=== PATIENT | female | born 1990 | race Two or more races ===

== ENCOUNTER 2019-01-13 07:10 | Emergency (ER) | payer MEDICAID ==
[~2019-01-13] VITALS: Ht 157.5 cm; Wt 83.6 kg
[2019-01-13 08:05] LABS: Urine Bacteria MOD /hpf (None Seen); Urine Blood Negative /uL (Negative); Urine Mucus FEW (None Seen); Urine Specific Gravity 1.034 (1.001-1.035); Urine WBC 6 /hpf (0 - 5)
[2019-01-13 09:47] VITALS: BP 105/68
== END 2019-01-13 10:09 | disposition home or self-care (01) ==
LOC: ER 07:10
DX: N39.0 Urinary tract infection, site not specified (principal); J03.90 Acute tonsillitis, unspecified
CPT/HCPCS: 81001; 87086

== ENCOUNTER 2020-01-14 10:29 | Emergency (ER) | payer MEDICAID ==
[~2020-01-14] VITALS: Ht 157.5 cm; Wt 81.6 kg
[2020-01-14 11:24] LABS: Urine Bacteria FEW /hpf (None Seen); Urine Blood 1+ /uL (Negative); Urine Mucus FEW (None Seen); Urine Specific Gravity 1.035 (1.001-1.035); Urine WBC 6 /hpf (0 - 5)
[2020-01-14 11:40] VITALS: BP 121/66
== END 2020-01-14 12:09 | disposition home or self-care (01) ==
LOC: ER 10:29
DX: N39.0 Urinary tract infection, site not specified (principal); Z32.02 Encounter for pregnancy test, result negative; Z88.1 Allergy status to other antibiotic agents
CPT/HCPCS: 36415; 81001; 84702

== ENCOUNTER 2022-03-12 16:38 | Emergency (ER) | payer MEDICAID ==
[~2022-03-12] VITALS: Ht 157.5 cm; Wt 81.6 kg
[2022-03-12 18:25] LABS: Basophils # (auto) 0 10 ^3/uL (0-0.2); Basophils % (auto) 0.5 % (0.0-2.0); Eosinophils # (auto) 0.1 10 ^3/uL (0-0.8); Eosinophils % (auto) 1.1 % (0.0-7.0); Hemoglobin 11.9 g/dL (12.2-16.2); Lymphocytes % (auto) 34.6 % (10.0-50.0); Mean Corpuscular Hemoglobin 28.3 pg (28.0-32.0); Mean Corpuscular Hgb Conc. 32.9 g/dL (32.0-36.0); Mean Corpuscular Volume 85.9 fL (80.0-100.0); Monocytes # (auto) 0.5 10 ^3/uL (0-1.3); Monocytes % (auto) 5.8 % (0.0-12.0); Neutrophils # (auto) 4.9 10 ^3/uL (1.6-8.6); Nucleated Red Blood Cells % 0.1 %; Red Blood Cells 4.19 10^6/uL (4.0-5.20); White Blood Cell 8.5 10^3/uL (4.4-10.8)
[2022-03-12 18:39] LABS: Potassium 3.4 mmol/L (3.5-5.1)
[2022-03-12 18:42] LABS: Urine Bacteria FEW /hpf (None Seen); Urine Blood Negative /uL (Negative); Urine Mucus FEW (None Seen); Urine Specific Gravity 1.022 (1.001-1.035); Urine WBC 1 /hpf (0 - 5)
[2022-03-12 18:47] LABS: Albumin 3.6 g/dL (3.4-5.0); BUN/Creatinine Ratio 10.8; Bilirubin, Total 0.3 mg/dL (0.2-1.0); Calcium 8.6 mg/dL (8.5-10.1); Total Protein 7.5 g/dL (6.4-8.2)
[2022-03-12 19:43] VITALS: BP 118/72
== END 2022-03-12 19:44 | disposition home or self-care (01) ==
LOC: ER 16:38
DX: R55 Syncope and collapse (principal); Z88.0 Allergy status to penicillin
CPT/HCPCS: 36415; 70450; 71046; 80053; 81001; 81025; 84484; 85025; 93005

== ENCOUNTER 2022-12-22 17:05 | Observation (INO) | payer MEDICAID ==
[2022-12-22] MEDS ORDERED: LACTATED RINGER'S 2,000 ML IV ONE (18:00)
== END 2022-12-22 19:57 | disposition home or self-care (01) ==
LOC: LDRP 17:05
PROVIDERS: ADMIT Obstetrics & Gynecology; ATTEND Obstetrics & Gynecology
DX: O26.892 Other specified pregnancy related conditions, second trimester (principal); R10.30 Lower abdominal pain, unspecified; N89.8 Other specified noninflammatory disorders of vagina; O62.9 Abnormality of forces of labor, unspecified; Z3A.22 22 weeks gestation of pregnancy
CPT/HCPCS: 59025; 76805; 81002; 94760; 96360; 96361; G0378; 96365; 96366

== ENCOUNTER 2023-03-18 22:15 | Observation (INO) | payer MEDICAID ==
[2023-03-18] MEDS ORDERED: LACTATED RINGER'S 1,000 ML IV ONE (23:15)
[2023-03-18] MEDS ORDERED: BETAMETHASONE ACET (30mg/5ml) 5ml Vial 6mg/ml IM ONE (23:15)
[2023-03-18] MEDS ORDERED: LACTATED RINGER'S 1,000 ML IV SCH (23:15)
[2023-03-18 23:26] LABS: Urine Bacteria FEW /hpf (None Seen); Urine Blood Negative /uL (Negative); Urine Mucus FEW (None Seen); Urine Specific Gravity 1.031 (1.001-1.035); Urine WBC 2 /hpf (0 - 5)
[2023-03-18] MEDS: TERBUTALINE SULFATE 1 MG/ML 1ML VIAL SC SCH (23:28)
[2023-03-18 23:39] LABS: Amphetamine Screen, Urine NEGATIVE (NEGATIVE); Barbiturate Scree,Urine NEGATIVE (NEGATIVE); Benzodiazephine Screen, Urine NEGATIVE (NEGATIVE); Cannabinoid Screen, Urine NEGATIVE (NEGATIVE); Cocaine Screen, Urine NEGATIVE (NEGATIVE); Opiate Scree,Urine NEGATIVE (NEGATIVE); Phencyclidine Screen, Urine NEGATIVE (NEGATIVE)
[2023-03-19] MEDS: TERBUTALINE SULFATE 1 MG/ML 1ML VIAL SC SCH ×2 (00:20→00:56)
[2023-03-20] MEDS ORDERED: PREN27TA7 PO ×2 (02:10)
== END 2023-03-19 02:02 | disposition home or self-care (01) ==
LOC: LDRP 22:15
PROVIDERS: ADMIT Obstetrics & Gynecology; ATTEND Obstetrics & Gynecology
DX: O34.33 Maternal care for cervical incompetence, third trimester (principal); O99.891 Other specified diseases and conditions complicating pregnancy; M54.9 Dorsalgia, unspecified; O26.893 Other specified pregnancy related conditions, third trimester; R10.9 Unspecified abdominal pain; Z3A.34 34 weeks gestation of pregnancy
CPT/HCPCS: 59025; 80307; 81001; 81002; 94760; 96360; 96361; 96372; G0378; J0702; J3105

== ENCOUNTER 2023-03-19 23:40 | Observation (INO) | payer MEDICAID ==
[~2023-03-19] VITALS: Ht 157.5 cm; Wt 88.5 kg
[2023-03-20] MEDS ORDERED: BETAMETHASONE ACET (30mg/5ml) 5ml Vial 6mg/ml IM ONE
[2023-03-20] MEDS ORDERED: PREN27TA7 PO ×2 (02:10)
== END 2023-03-20 02:22 | disposition home or self-care (01) ==
LOC: LDRP 23:40
PROVIDERS: ADMIT Obstetrics & Gynecology; ATTEND Obstetrics & Gynecology
DX: O60.03 Preterm labor without delivery, third trimester (principal); O62.9 Abnormality of forces of labor, unspecified; Z3A.34 34 weeks gestation of pregnancy
CPT/HCPCS: 59025; 76818; 81002; 94760; G0378; J0702; 96372

== ENCOUNTER 2023-04-02 04:16 | Inpatient (IN) | payer MEDICAID ==
[~2023-04-02] VITALS: Ht 157.5 cm; Wt 86.2 kg
[~2023-04-02 04:16] MED LIST: PREN27TA7 PO
[2023-04-02] MEDS ORDERED: DERMOPLAST 60ML BOTTLE TOP PRN (04:45)
[2023-04-02] MEDS ORDERED: METHYLERGONOVINE MALEATE 0.2 MG/ML AMP IM PRN (04:45)
[2023-04-02] MEDS ORDERED: LACT. RINGERS/OXYTOCIN 20UNITS 500 ML IV ONE ×2 (04:45→05:15)
[2023-04-02] MEDS ORDERED: BUTORPHANOL TARTRATE 2 MG/1 ML VIAL IV PRN ×2 (04:45)
[2023-04-02] MEDS ORDERED: LIDOCAINE 2%HCL (LOCAL ANESTH.) INJ 20ML MDV IJ PRN (04:45)
[2023-04-02] MEDS ORDERED: PHISODERM TOP SOLN 240ML BTL TOP PRN (04:45)
[2023-04-02] MEDS ORDERED: miSOPROStol 100 mcg TAB PR PRN (04:45)
[2023-04-02] MEDS ORDERED: PROMETHAZINE HCL 25 MG/ML 1ML IM PRN (04:45)
[2023-04-02] MEDS ORDERED: WITCH HAZEL-GLYCERIN PAD TOP PRN (04:45)
[2023-04-02] MEDS ORDERED: miSOPROStol 100 mcg TAB SL PRN (04:45)
[2023-04-02] MEDS ORDERED: LACTATED RINGER'S 1,000 ML IV SCH (04:45)
[2023-04-02 05:22] LABS: Basophils # (auto) 0 10 ^3/uL (0-0.2); Basophils % (auto) 0.4 % (0.0-2.0); Eosinophils # (auto) 0 10 ^3/uL (0-0.8); Monocytes # (auto) 0.6 10 ^3/uL (0-1.3); Neutrophils # (auto) 6.8 10 ^3/uL (1.6-8.6)
[2023-04-02 05:24] LABS: Eosinophils % (auto) 0.4 % (0.0-7.0); Hematocrit 26.8 % (36.0-46.0); Hemoglobin 8.4 g/dL (12.2-16.2); Lymphocytes # (auto) 2.4 10 ^3/uL (0.4-5.4); Lymphocytes % (auto) 24.2 % (10.0-50.0); Mean Corpuscular Hemoglobin 24.4 pg (28.0-32.0); Mean Corpuscular Hgb Conc. 31.4 g/dL (32.0-36.0); Mean Corpuscular Volume 77.5 fL (80.0-100.0); Monocytes % (auto) 6.3 % (0.0-12.0); Neutrophils % (auto) 68.7 % (37.0-80.0); Nucleated Red Blood Cells % 0.1 %; Red Blood Cells 3.45 10^6/uL (4.0-5.20); Red Cell Distribution Width 19.1 % (11.8-14.3)
[2023-04-02 05:35] LABS: Albumin 2.4 g/dL (3.4-5.0); Calcium 8.1 mg/dL (8.5-10.1); Potassium 3.3 mmol/L (3.5-5.1)
[2023-04-02 05:38] LABS: INR 0.89 (0.9-1.15); Partial Thromboplastin Time 26.1 sec (24.6-33.4)
[2023-04-02 05:39] LABS: BUN/Creatinine Ratio 15.9 (10.0-20.0); Bilirubin, Total 0.2 mg/dL (0.2-1.0); Total Protein 6.6 g/dL (6.4-8.2)
[2023-04-02 05:47] LABS: Urine Bacteria FEW /hpf (None Seen); Urine Blood Negative /uL (Negative); Urine Hyaline Cast FEW /lpf (0 - 2); Urine Mucus FEW (None Seen); Urine Specific Gravity 1.016 (1.001-1.035); Urine WBC 1 /hpf (0 - 5)
[2023-04-02] MEDS ORDERED: CLINDAMYCIN 900MG IV 50 ML IV SCH (06:00)
[2023-04-02 06:02] LABS: Alcohol, Urine < 3.0 mg/dL (0-10); Amphetamine Screen, Urine NEGATIVE (NEGATIVE); Barbiturate Scree,Urine NEGATIVE (NEGATIVE); Benzodiazephine Screen, Urine NEGATIVE (NEGATIVE); Cannabinoid Screen, Urine NEGATIVE (NEGATIVE); Cocaine Screen, Urine NEGATIVE (NEGATIVE); Opiate Scree,Urine NEGATIVE (NEGATIVE); Phencyclidine Screen, Urine NEGATIVE (NEGATIVE)
[2023-04-02] MEDS ORDERED: NALOXONE HCL 0.4 MG/ML VIAL IV ONE (07:15)
[2023-04-02] MEDS ORDERED: ePHEDrine SULFATE 50 MG/ML AMP IV ONE (07:15)
[2023-04-02] MEDS ORDERED: fentaNYL CITRATE 100 MCG/2 ML VL IV ONE (07:15)
[2023-04-02] MEDS ORDERED: ROPIVACAINE HCL 200 ML EPI SCH (07:15)
[2023-04-02] MEDS ORDERED: LACTATED RINGER'S 1,000 ML IV ONE (07:15)
[2023-04-02] MEDS ORDERED: Lidocaine W-Epinephrine 1.5%-1:200,000 INJ 10ml Vial ONE (07:23)
[2023-04-03 07:07] LABS: RPR Non Reactive (Non Reactive)
== END 2023-04-02 08:42 | disposition home or self-care (01) | DRG 566 ==
LOC: OBSVTOIN 04:16 → LDRP 04:16
PROVIDERS: ADMIT Obstetrics & Gynecology; ATTEND Obstetrics & Gynecology
DX: O60.03 Preterm labor without delivery, third trimester (principal); Z3A.36 36 weeks gestation of pregnancy
CPT/HCPCS: 36415; 59025; 80053; 80307; 81001; 85025; 85610; 85730; 86592; 86850; 86900; 86901; 86920; 94760; 96360; 96361; G0378; J2590; J3490

== ENCOUNTER 2023-04-11 13:34 | Observation (INO) | payer MEDICAID | END 2023-04-11 16:48 | disposition home or self-care (01) | LOC: UNDOADMOB 13:34 → LDRP 13:34 → UNDOADMOB 14:20 → LDRP 14:20 | PROVIDERS: ADMIT Obstetrics & Gynecology; ATTEND Obstetrics & Gynecology | DX: O42.92 Full-term premature rupture of membranes, unspecified as to length of time between rupture and onset of labor (principal); O62.9 Abnormality of forces of labor, unspecified; Z3A.37 37 weeks gestation of pregnancy | CPT/HCPCS: 59025; 76818; 81002; 84112; 94760; G0378; Q0114 ==

== ENCOUNTER 2023-04-14 11:20 | Inpatient (IN) | payer MEDICAID ==
[~2023-04-14] VITALS: Ht 157.5 cm; Wt 90.7 kg
[2023-04-14] MEDS ORDERED: DERMOPLAST 60ML BOTTLE TOP PRN (14:15)
[2023-04-14] MEDS ORDERED: TERBUTALINE SULFATE 1 MG/ML 1ML VIAL SC PRN (14:15)
[2023-04-14] MEDS ORDERED: PROMETHAZINE HCL 25 MG/ML 1ML IV PRN (14:15)
[2023-04-14] MEDS ORDERED: LIDOCAINE 2%HCL (LOCAL ANESTH.) INJ 20ML MDV IJ PRN (14:15)
[2023-04-14] MEDS ORDERED: BUTORPHANOL TARTRATE 2 MG/1 ML VIAL IV PRN ×2 (14:15)
[2023-04-14] MEDS ORDERED: WITCH HAZEL-GLYCERIN PAD TOP PRN (14:15)
[2023-04-14] MEDS ORDERED: PHISODERM TOP SOLN 240ML BTL TOP PRN (14:15)
[2023-04-14] MEDS ORDERED: LACT. RINGERS/OXYTOCIN 20UNITS 500 ML IV ONE ×2 (14:15→14:45)
[2023-04-14] MEDS ORDERED: LACT. RINGERS/OXYTOCIN 20UNITS 1,000 ML IV SCH (14:15)
[2023-04-14 15:29] LABS: Basophils # (auto) 0 10 ^3/uL (0-0.2); Eosinophils # (auto) 0.1 10 ^3/uL (0-0.8); Mean Corpuscular Hgb Conc. 31.2 g/dL (32.0-36.0); Monocytes # (auto) 0.5 10 ^3/uL (0-1.3); Neutrophils % (auto) 71.5 % (37.0-80.0)
[2023-04-14 15:32] LABS: Basophils % (auto) 0.2 % (0.0-2.0); Eosinophils % (auto) 0.7 % (0.0-7.0); Hematocrit 27.7 % (36.0-46.0); Hemoglobin 8.6 g/dL (12.2-16.2); Mean Corpuscular Hemoglobin 24.5 pg (28.0-32.0); Mean Corpuscular Volume 78.7 fL (80.0-100.0); Monocytes % (auto) 5.6 % (0.0-12.0); Neutrophils # (auto) 6.4 10 ^3/uL (1.6-8.6); Nucleated Red Blood Cells % 0.1 %; Red Blood Cells 3.52 10^6/uL (4.0-5.20); White Blood Cell 8.9 10^3/uL (4.4-10.8)
[2023-04-14 15:45] LABS: INR 0.87 (0.9-1.15); Partial Thromboplastin Time 26.2 sec (24.6-33.4)
[2023-04-14 15:51] LABS: Albumin 2.5 g/dL (3.4-5.0); Calcium 8.5 mg/dL (8.5-10.1); Potassium 3.4 mmol/L (3.5-5.1)
[2023-04-14 15:53] LABS: Alcohol, Urine < 3.0 mg/dL (0-10); Amphetamine Screen, Urine NEGATIVE (NEGATIVE); Barbiturate Scree,Urine NEGATIVE (NEGATIVE); Benzodiazephine Screen, Urine NEGATIVE (NEGATIVE); Cannabinoid Screen, Urine NEGATIVE (NEGATIVE); Cocaine Screen, Urine NEGATIVE (NEGATIVE); Opiate Scree,Urine NEGATIVE (NEGATIVE); Phencyclidine Screen, Urine NEGATIVE (NEGATIVE)
[2023-04-14 15:54] LABS: BUN/Creatinine Ratio 13.8 (10.0-20.0); Bilirubin, Total 0.2 mg/dL (0.2-1.0); Total Protein 6.8 g/dL (6.4-8.2)
[2023-04-14 16:06] LABS: Urine Bacteria FEW /hpf (None Seen); Urine Blood Negative /uL (Negative); Urine WBC 9 /hpf (0 - 5)
[2023-04-14] MEDS: CLINDAMYCIN 900MG IV 50 ML IV SCH (17:29)
[2023-04-14] MEDS ORDERED: METHYLERGONOVINE MALEATE 0.2 MG/ML AMP IM PRN (18:30)
[2023-04-14] MEDS ORDERED: CARBOPROST TROMETHAMINE 250 MCG/1ML VIAL IM PRN (18:30)
[2023-04-14] MEDS ORDERED: miSOPROStol 100 mcg TAB SL PRN (18:30)
[2023-04-14] MEDS ORDERED: ROPIVACAINE HCL 200 ML EPI SCH ×3 (19:15→20:45)
[2023-04-14] MEDS ORDERED: ePHEDrine SULFATE 50 MG/ML AMP IV ONE ×2 (19:15→20:00)
[2023-04-14] MEDS ORDERED: NALOXONE HCL 0.4 MG/ML VIAL IV ONE ×2 (19:15→20:00)
[2023-04-14] MEDS ORDERED: LACTATED RINGER'S 1,000 ML IV ONE (19:15)
[2023-04-14] MEDS ORDERED: fentaNYL CITRATE 100 MCG/2 ML VL IV ONE (19:15)
[2023-04-14] MEDS ORDERED: LACTATED RINGER'S 500 ML IV ONE (20:00)
[2023-04-14] MEDS ORDERED: SODIUM CHLORIDE 0.9% 500 ML IV PRN (20:00)
[2023-04-14] MEDS: LACTATED RINGER'S 1,000 ML IV SCH ×2 (21:00→22:15)
[2023-04-15] MEDS: CLINDAMYCIN 900MG IV 50 ML IV SCH ×2 (01:50→10:31)
[2023-04-15] MEDS: LACTATED RINGER'S 1,000 ML IV SCH ×4 (06:15→10:34)
[2023-04-15 07:00] VITALS: BP 118/74
[2023-04-15] MEDS ORDERED: ACETAMINOPHEN 325 MG TAB PO PRN (07:15)
[2023-04-15] MEDS ORDERED: ONDANSETRON ODT 4 MG TAB PO PRN (07:30)
[2023-04-15 11:00] VITALS: BP 113/96
[2023-04-15] MEDS: IBUPROFEN 800 MG TAB PO SCH ×2 (12:12→17:30)
[2023-04-15 14:57] VITALS: BP 104/65
[2023-04-15 18:58] VITALS: BP 126/73
[2023-04-15 22:53] VITALS: BP 119/74
[2023-04-16 03:00] VITALS: BP 125/77
[2023-04-16 07:30] VITALS: BP 112/84
[2023-04-16 08:06] LABS: RPR Non Reactive (Non Reactive)
[2023-04-16 11:00] VITALS: BP 124/82
== END 2023-04-16 13:02 | disposition home or self-care (01) | DRG 560 ==
LOC: LDRP 11:20 → OBSVTOIN 14:05 → LDRP 04-15 05:54
PROVIDERS: ADMIT Obstetrics & Gynecology; ATTEND Obstetrics & Gynecology
PROC: 10E0XZZ Delivery of Products of Conception, External Approach (ICD-10-PCS; principal; 2023-04-14)
PROC: 10907ZC Drainage of Amniotic Fluid, Therapeutic from Products of Conception, Via Natural or Artificial Opening (ICD-10-PCS; 2023-04-14)
PROC: 3E0R3BZ Introduction of Anesthetic Agent into Spinal Canal, Percutaneous Approach (ICD-10-PCS; 2023-04-14)
PROC: 00HU33Z Insertion of Infusion Device into Spinal Canal, Percutaneous Approach (ICD-10-PCS; 2023-04-14)
DX: O66.0 Obstructed labor due to shoulder dystocia (principal); Z37.0 Single live birth; Z3A.38 38 weeks gestation of pregnancy
CPT/HCPCS: 36415; 59025; 59409; 62282; 80053; 80307; 81001; 85025; 85610; 85730; 86592; 86850; 86900; 86901; 86920; 94760; 96360; 96361; 96365; 96366; 96374; 96375; G0378; J2590; J3490

== ENCOUNTER → 2024-01-01 | Outpatient (CLI) | payer MEDICAID ==
[2024-01-01 14:45] LABS: Basophils # (auto) 0 10 ^3/uL (0-0.2); Basophils % (auto) 0.4 % (0.0-2.0); Eosinophils # (auto) 0.1 10 ^3/uL (0-0.8); Lymphocytes # (auto) 1.8 10 ^3/uL (0.4-5.4)
[2024-01-01 14:48] LABS: Eosinophils % (auto) 1.2 % (0.0-7.0); Hematocrit 31.3 % (36.0-46.0); Hemoglobin 9.6 g/dL (12.2-16.2); Lymphocytes % (auto) 19.4 % (10.0-50.0); Mean Corpuscular Hgb Conc. 30.6 g/dL (32.0-36.0); Mean Corpuscular Volume 75.3 fL (80.0-100.0); Monocytes # (auto) 0.4 10 ^3/uL (0-1.3); Monocytes % (auto) 4.9 % (0.0-12.0); Neutrophils # (auto) 6.7 10 ^3/uL (1.6-8.6); Neutrophils % (auto) 74.1 % (37.0-80.0); Red Blood Cells 4.15 10^6/uL (4.0-5.20); White Blood Cell 9.1 10^3/uL (4.4-10.8)
[2024-01-01 15:00] LABS: Red Cell Distribution Width 21.3 % (11.8-14.3)
[2024-01-01 15:24] LABS: Amphetamine Screen, Urine Neg (NEGATIVE); Barbiturate Scree,Urine Neg (NEGATIVE); Benzodiazephine Screen, Urine Neg (NEGATIVE); Cannabinoid Screen, Urine Neg (NEGATIVE); Cocaine Screen, Urine Neg (NEGATIVE); Opiate Scree,Urine Neg (NEGATIVE); Phencyclidine Screen, Urine Neg (NEGATIVE)
[2024-01-02 22:06] LABS: Chlamydia Trachomatis, NAA Negative (Negative); Neisseria gonorrhoeae, NAA Negative (Negative)
[2024-01-03 10:07] LABS: RPR Non Reactive (Non Reactive)
[2024-01-03 17:07] LABS: QuantiFERON-TB Gold Plus Negative (Negative)
== END | disposition home or self-care (01) ==
LOC: LAB 14:03
PROVIDERS: ATTEND Obstetrics & Gynecology
DX: Z31.430 Encounter of female for testing for genetic disease carrier status for procreative management (principal); N39.0 Urinary tract infection, site not specified; Z3A.00 Weeks of gestation of pregnancy not specified
CPT/HCPCS: 36415; 80307; 83036; 84144; 84702; 85025; 86592; 86703; 86762; 86850; 86900; 86901; 87086; 87340

== ENCOUNTER 2024-03-13 15:21 | Observation (INO) | payer MEDICAID ==
[2024-03-13 16:16] LABS: Vaginal Bacteria Rare; Vaginal Clue Cells None Seen; Vaginal Epithelial Cells Few; Vaginal Trichomonas Not Present
[2024-03-13 17:59] LABS: Urine Amorphous Crystal FEW /hpf (None Seen); Urine Bacteria MANY /hpf (None Seen); Urine Blood Negative /uL (Negative); Urine Clarity Ex.Turbid (Clear); Urine Mucus FEW (None Seen); Urine Protein, UAD 1+ (Negative); Urine Specific Gravity 1.031 (1.001-1.035); Urine Urobilinogen Normal (Negative); Urine WBC 110 /hpf (0 - 5); Urine WBC Clumps PRESENT /hpf (None Seen)
[2024-03-13 18:00] LABS: Urine Color Yellow (Yellow)
== END 2024-03-13 16:44 | disposition home or self-care (01) ==
LOC: LDRP 15:21 → UNDOADMOB 15:21 → LDRP 15:30
PROVIDERS: ADMIT Obstetrics & Gynecology; ATTEND Obstetrics & Gynecology
DX: O23.592 Infection of other part of genital tract in pregnancy, second trimester (principal); Z3A.26 26 weeks gestation of pregnancy; Z88.0 Allergy status to penicillin; Z87.440 Personal history of urinary (tract) infections
CPT/HCPCS: 59025; 81001; 81002; 87086; 87210; 94760; G0378

== ENCOUNTER 2024-04-25 20:34 | Observation (INO) | payer MEDICAID ==
[~2024-04-25] VITALS: Ht 157.5 cm; Wt 86.6 kg
== END 2024-04-25 23:42 | disposition home or self-care (01) ==
LOC: LDRP 20:34
PROVIDERS: ADMIT Obstetrics & Gynecology; ATTEND Obstetrics & Gynecology
DX: O26.893 Other specified pregnancy related conditions, third trimester (principal); R10.2 Pelvic and perineal pain; Z3A.31 31 weeks gestation of pregnancy; Z88.0 Allergy status to penicillin
CPT/HCPCS: 59025; 76817; 76818; 81002; 94760; G0378

== ENCOUNTER 2024-05-19 17:08 | Observation (INO) | payer MEDICAID | END 2024-05-19 19:47 | disposition home or self-care (01) | LOC: LDRP 17:08 | PROVIDERS: ADMIT Obstetrics & Gynecology; ATTEND Obstetrics & Gynecology | DX: O60.03 Preterm labor without delivery, third trimester (principal); O26.893 Other specified pregnancy related conditions, third trimester; R10.9 Unspecified abdominal pain; Z3A.36 36 weeks gestation of pregnancy; Z88.0 Allergy status to penicillin | CPT/HCPCS: 59025; 81002; 94760; 96360; 96361; G0378 ==

== ENCOUNTER 2024-05-24 16:41 | Observation (INO) | payer MEDICAID | END 2024-05-24 19:05 | disposition home or self-care (01) | LOC: LDRP 16:41 | PROVIDERS: ADMIT Obstetrics & Gynecology; ATTEND Obstetrics & Gynecology | DX: O62.9 Abnormality of forces of labor, unspecified (principal); O26.893 Other specified pregnancy related conditions, third trimester; R10.9 Unspecified abdominal pain; Z3A.37 37 weeks gestation of pregnancy | CPT/HCPCS: 59025; 81002; 94760; G0378 ==

== ENCOUNTER → 2024-07-27 | Emergency (ER) | payer MEDICAID ==
[~2024-07-27] VITALS: Ht 157.5 cm; Wt 79.9 kg
[2024-07-27 23:13] VITALS: BP 109/77; PULSE 113; RESP 20; O2SAT 97
[2024-07-28 00:13] LABS: COVID19 ANTIGEN SOFIA FIA NEGATIVE (NEGATIVE); Rapid Influenza A Negative (Negative); Rapid Influenza B Negative (Negative)
== END | disposition left against medical advice (07) ==
LOC: ER 23:02
DX: R05.9 Cough, unspecified (principal); R51.9 Headache, unspecified; R09.89 Other specified symptoms and signs involving the circulatory and respiratory systems; R50.9 Fever, unspecified; J02.9 Acute pharyngitis, unspecified; M79.10 Myalgia, unspecified site; Z53.21 Procedure and treatment not carried out due to patient leaving prior to being seen by health care provider; Z20.822 Contact with and (suspected) exposure to COVID-19
CPT/HCPCS: 36415; 87426; 87804

== ENCOUNTER 2025-04-05 15:43 | Inpatient (IN) | payer MEDICAID ==
[~2025-04-05] VITALS: Ht 157.5 cm; Wt 86.2 kg
[2025-04-05] MEDS ORDERED: LIDOCAINE 2%HCL (LOCAL ANESTH.) INJ 20ML MDV IJ PRN (16:00)
[2025-04-05 16:24] LABS: Urine Bacteria None Seen /hpf (None Seen)
[2025-04-05 16:25] LABS: Basophils # (auto) 0.1 10 ^3/uL (0-0.2); Eosinophils # (auto) 0.1 10 ^3/uL (0-0.8); Hemoglobin 8.2 g/dL (12.2-16.2); Lymphocytes # (auto) 1.8 10 ^3/uL (0.4-5.4); Mean Corpuscular Hemoglobin 22.3 pg (28.0-32.0); Monocytes # (auto) 0.5 10 ^3/uL (0-1.3); White Blood Cell 9.1 10^3/uL (4.4-10.8)
[2025-04-05 16:27] LABS: Basophils % (auto) 0.9 % (0.0-2.0); Eosinophils % (auto) 0.7 % (0.0-7.0); Hematocrit 26.9 % (36.0-46.0); Lymphocytes % (auto) 20.1 % (10.0-50.0); Mean Corpuscular Hgb Conc. 30.5 g/dL (32.0-36.0); Monocytes % (auto) 5.4 % (0.0-12.0); Neutrophils # (auto) 6.7 10 ^3/uL (1.6-8.6); Neutrophils % (auto) 72.9 % (37.0-80.0); Nucleated Red Blood Cells % 0.5 %; Platelet Count (auto) 343 10^3/uL (140-450); Red Blood Cells 3.69 10^6/uL (4.0-5.20); Red Cell Distribution Width 24.1 % (11.8-14.3)
[2025-04-05 16:31] LABS: Urine Blood Negative /uL (Negative); Urine Clarity Clear (Clear); Urine Color Light-Yellow (Yellow); Urine Protein, UAD Negative (Negative); Urine Specific Gravity 1.015 (1.001-1.035); Urine Squamous Epithelial Cell FEW /hpf (<5); Urine Urobilinogen Normal (Negative); Urine WBC 21 /HPF (0-5)
[2025-04-05 16:43] LABS: INR 0.88 (0.9-1.15); Partial Thromboplastin Time 26.1 SEC (24.5-34.5); Prothrombin Time 9.4 sec (9.3-11.8)
[2025-04-05 16:48] LABS: Albumin 3.5 g/dL (3.2-4.8); Anion Gap 12 (5-15); Aspartate Aminotransferase 15 U/L (13-40); BUN/Creatinine Ratio 12.5 (10.0-20.0); Calcium 8.9 mg/dL (8.7-10.4); Carbon Dioxide 20 mmol/L (20-31); Chloride 106 mmol/L (98-107); Potassium 3.5 mmol/L (3.5-5.1); Sodium 138 mmol/L (136-145); Total Protein 6.1 g/dL (5.7-8.2)
[2025-04-05 16:50] LABS: Amphetamine Screen, Urine Neg (NEGATIVE); Barbiturate Scree,Urine Neg (NEGATIVE); Opiate Scree,Urine Neg (NEGATIVE); Phencyclidine Screen, Urine Neg (NEGATIVE)
[2025-04-05 16:51] LABS: Alanine Aminotransferase < 9 U/L (7-40); Alkaline Phosphatase 136 U/L (46-116); Bilirubin, Total 0.2 mg/dL (0.2-1.0); Blood Urea Nitrogen 7 mg/dL (9-23); Glucose 125 mg/dL (74-106)
[2025-04-05 16:51] LABS: Benzodiazephine Screen, Urine Neg (NEGATIVE); Cannabinoid Screen, Urine Neg (NEGATIVE); Cocaine Screen, Urine Neg (NEGATIVE)
--- NOTE | 2025-04-05 16:59 | DVHHP2 ---
OB CC & HPI Date Date of Admission: April 05, 2025 Patient Identification: : 11 Para: 7 EDC: April 20, 2025 EGA: 37 6/7 wks Chief Complaints: Reason for admission: active labor, labor Other reason for admission: labor Admission Nurse Assessment Rev: Yes History of Present Complaints Good care FeSO4 deficiency of Past Medical History Cardiac: No pertinent Hx Pulmonary: No pertinent Hx Central Nervous System: No pertinent Hx GI: No pertinent Hx Hemotology/Oncology: No pertinent Hx Hepatobiliary: No pertinent Hx Psychiatric: No pertinent Hx Musculoskeletal: No pertinent Hx Rheumotologic: No pertinent Hx Infectious Disease: No peritnent Hx ENT: No pertinent Hx Renal/: No pertinent Hx Endocrine: No pertinent Hx Dermatology: No pertinent Hx Past Surgical History: No pertinent Hx OB History OB History Care: Good Care Ultrasounds: Normal mid trimester US Obstetrical Complications: None Medical Complications: None Other Concerns: mildly anemic Allergies: Coded Allergies: Penicillins (Verified Allergy, Severe, 04/02/23) Uncoded Allergies: ALL CILLINS (Allergy, Severe, 01/13/19) Home Meds Reported Medications Vit W/ Ferrous Fumara () 1 Tab Tab, 1 TAB PO DAILY, TAB 03/20/23 Current Medications Current Medications Medications (Trade) Dose Ordered Sig/Joss Route PRN Reason Start Time Stop Time Status Last Admin Lactated Ringer's 1,000 ml @ 125 mls/hr Q8H IV 04/05/25 16:00 Mariana Susy (Tucks) 1 pad PRN PRN TOP PERINEAL AREA DISCOMFORT 04/05/25 16:00 Sodium Lauryl Sulfate (Phisoderm) 240 ml PRN PRN TOP PERINEAL AREA DISCOMFORT 04/05/25 16:00 Benzocaine (Dermoplast) 1 applic PRN PRN TOP PERINEAL AREA DISCOMFORT 04/05/25 16:00 Lidocaine HCl (Xylocaine) 20 ml ONCE PRN IJ PERINEAL AREA DISCOMFORT 04/05/25 16:00 Clindamycin Phosphate 50 ml @ 50 mls/hr Q8HR IV 04/05/25 22:00 Family & Social History Family/Social History Blood Type: B+ Rubella: immune RPR/VDRL: Negative GBS Status: Negative HBsAG: Negative Review of Systems Constitutional: No symptom reported Ears, Nose, & Throat: No symptom reported Eyes: No symptom reported Pulmonary/Respiratory: No symptom reported Cardiovascular: No symptom reported Gastrointestinal: No symptom reported Genitourinary: No symptom reported Musculoskeletal: No symptom reported Skin: No symptom reported Psychiatric: No symptom reported Endocrine: No symptom reported Hemotologic/Lymphatic: No symptom reported OB Admission Exam Physical Exam HEENT: TMs Normal, Fontanelles Normal, Nasal Mucosa Normal, Eyes non-injected, Oropharynx Normal, PERRLA, Moist Membranes, EOMI Heart: Rhythm Normal Lungs: Clear Abdomen: Non tender Extremities: Normal Reflexes: Normal Cervical Dilatation: 5cm Effacement: 75% Station: -1 Membranes: Intact Amniotic Fluid: Other (AROM clear) Accelerations: Accelerations Present Decelerations: No Decelerations Short Term Variability: Present Contractions on Admission: < 5 Minutes Apart Intensity: Moderate OB Plan Plan Admitting Diagnosis: Labor; Plan: Expectant Management Other Plan: Expectant managment , Type Cross on Hold , Pitocin and Methergine in room ready in case of post hemorrhage. TALA HANCOCK DO April 05, 2025 16:59
[2025-04-05] MEDS ORDERED: miSOPROStol 100 mcg TAB PR PRN (17:00)
[2025-04-05] MEDS ORDERED: METHYLERGONOVINE MALEATE 0.2 MG/ML AMP IM PRN (17:00)
[2025-04-05] MEDS ORDERED: miSOPROStol 100 mcg TAB SL PRN (17:00)
[2025-04-05] MEDS ORDERED: CARBOPROST TROMETHAMINE 250 MCG/1ML VIAL IM PRN (17:00)
--- NOTE | 2025-04-05 17:07 | LDN2 ---
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
[2025-04-05] MEDS: LACTATED RINGER'S 1,000 ML IV SCH (18:37)
[2025-04-05] MEDS: LACT. RINGERS/OXYTOCIN 20UNITS 500 ML IV ONE ×2 (18:37→18:43)
[2025-04-05 19:00] VITALS: RESP 18
[2025-04-05] MEDS ORDERED: DIPHENOXYLATE W/ATROPINE 2.5 MG TAB PO PRN (20:30)
[2025-04-05] MEDS ORDERED: CARBOPROST TROMETHAMINE 250 MCG/1ML VIAL IM ONE (20:30)
[2025-04-05] MEDS ORDERED: ONDANSETRON HCL 4 MG/2 ML VIAL IV PRN (20:30)
[2025-04-05] MEDS ORDERED: ONDANSETRON ODT 4 MG TAB PO PRN (20:30)
[2025-04-05] MEDS: DERMOPLAST 60ML BOTTLE TOP PRN (21:09)
[2025-04-05] MEDS: PHISODERM TOP SOLN 240ML BTL TOP PRN (21:09)
[2025-04-05] MEDS: WITCH HAZEL-GLYCERIN PAD TOP PRN (21:09)
[2025-04-05] MEDS: IBUPROFEN 800 MG TAB PO PRN (21:10)
[2025-04-05] MEDS ORDERED: DIPHENOXYLATE W/ATROPINE 2.5 MG TAB PO SCH (22:00)
[2025-04-05] MEDS: DOCUSATE SOD 100 MG CAP PO SCH (22:00)
[2025-04-05] MEDS ORDERED: CLINDAMYCIN 600MG IV 50 ML IV SCH (22:00)
[2025-04-05 23:00] VITALS: BP 104/67; PULSE 84; RESP 16; TEMP 98.3; O2SAT 98
[2025-04-06] MEDS: ACETAMINOPHEN 325 MG TAB PO PRN (00:35)
[2025-04-06] MEDS ORDERED: IBUPROFEN 600 MG TAB PO PRN (02:30)
[2025-04-06 03:00] VITALS: BP 99/69; PULSE 76; RESP 18; TEMP 97.8; O2SAT 96
--- NOTE | 2025-04-06 06:49 | DVHPN2 ---
Chief Complaints Patient reports: No new complaints, Feels better Nursing reports: No new complaints, No abdominal pain, No chest pain, No dizziness, No cough Objective Vitals Vital Signs Date Time Temp Pulse Resp B/P (MAP) Pulse Ox O2 Delivery O2 Flow Rate FiO2 04/06/25 03:00 97.8 76 18 99/69 (79) 96 97.8 04/05/25 19:00 Room Air Medications Current Medications Medications (Trade) Dose Ordered Sig/Joss Route PRN Reason Start Time Stop Time Status Last Admin Acetaminophen (Tylenol Tablet) 650 mg Q4HP PRN PO MILD PAIN (1-3 PAIN SCALE) 04/05/25 20:30 04/06/25 00:35 Benzocaine (Dermoplast) 1 applic PRN PRN TOP PERINEAL AREA DISCOMFORT 04/05/25 16:00 04/05/25 21:09 Clindamycin Phosphate 50 ml @ 50 mls/hr Q8HR IV 04/05/25 22:00 Diphenoxylate HCl/ Atropine (Lomotil Tablet) 5 mg Q6HP PRN PO FOR DIARRHEA 04/05/25 20:30 Cancel Docusate Sodium (Colace Capsule) 200 mg HS PO 04/05/25 22:00 Ibuprofen (Motrin Tablet) 600 mg Q6HP PRN PO MODERATE PAIN (4-6 PAIN SCALE) 04/06/25 02:30 Ibuprofen (Motrin Tablet) 800 mg Q6HR PRN PO PAIN SCALE 1 THRU 6 04/05/25 20:45 04/05/25 21:10 Lactated Ringer's 1,000 ml @ 125 mls/hr Q8H IV 04/05/25 16:00 04/05/25 18:37 Lidocaine HCl (Xylocaine) 20 ml ONCE PRN IJ PERINEAL AREA DISCOMFORT 04/05/25 16:00 Methylergonovine Maleate (Methergine) 0.2 mg Q8HP PRN IM POST HEMORRHAGE 04/05/25 17:00 04/07/25 16:59 Misoprostol (Cytotec) 200 mcg ONCE PRN SL BLEED/HEMORRHAGE 04/05/25 17:00 Misoprostol (Cytotec) 600 mcg ONCE PRN MA BLEED/HEMORRHAGE 04/05/25 17:00 Ondansetron HCl (Zofran Po) 4 mg Q4HPRN PRN PO NAUSEA / VOMITING 04/05/25 20:30 Ondansetron HCl (Zofran) 4 mg Q4HP PRN IV NAUSEA / VOMITING 04/05/25 20:30 Sodium Lauryl Sulfate (Phisoderm) 240 ml PRN PRN TOP PERINEAL AREA DISCOMFORT 04/05/25 16:00 04/05/25 21:09 Mariana Jain (Tucks) 1 pad PRN PRN TOP PERINEAL AREA DISCOMFORT 04/05/25 16:00 04/05/25 21:09 General: Normal Neck: Normal Lungs: Normal Cardiovascular: Normal Abdominal: Normal (uterus 12 wk ) Musculoskeletal: Normal Extremities: Normal Skin: Normal Studies Laboratory Tests 04/05/25 16:05 Test 04/05/25 16:05 Range/Units Serum Glucose 125 H 74-106 mg/dL Ass/Plan Assessment PPD #1 stable improved Plan advance care TALA HANCOCK DO April 06, 2025 06:49
[2025-04-06 07:00] VITALS: BP 99/67; PULSE 67; RESP 18; TEMP 98.1; O2SAT 97
[2025-04-06] MEDS ORDERED: PREN27TA7 PO (09:55)
[2025-04-06] MEDS ORDERED: DOCU-265 PO (09:55)
[2025-04-06] MEDS ORDERED: FER325T PO (09:55)
[2025-04-06] MEDS ORDERED: IBUP-1455 PO (09:55)
[2025-04-06 10:45] LABS: Basophils # (auto) 0 10 ^3/uL (0-0.2); Eosinophils # (auto) 0.1 10 ^3/uL (0-0.8); Hemoglobin 7.4 g/dL (12.2-16.2); Monocytes # (auto) 0.7 10 ^3/uL (0-1.3); Neutrophils # (auto) 6.8 10 ^3/uL (1.6-8.6); Nucleated Red Blood Cells % 0.5 %
[2025-04-06 10:48] LABS: Basophils % (auto) 0.3 % (0.0-2.0); Eosinophils % (auto) 0.9 % (0.0-7.0); Hematocrit 24.4 % (36.0-46.0); Lymphocytes # (auto) 2.1 10 ^3/uL (0.4-5.4); Mean Corpuscular Hemoglobin 21.9 pg (28.0-32.0); Mean Corpuscular Hgb Conc. 30.2 g/dL (32.0-36.0); Mean Corpuscular Volume 72.5 fL (80.0-100.0); Neutrophils % (auto) 69.8 % (37.0-80.0); Platelet Count (auto) 276 10^3/uL (140-450); Red Blood Cells 3.36 10^6/uL (4.0-5.20); White Blood Cell 9.7 10^3/uL (4.4-10.8)
[2025-04-06 11:00] VITALS: BP 118/66; PULSE 70; RESP 16; TEMP 98.2; O2SAT 99
[2025-04-06 11:01] LABS: Red Cell Distribution Width 22.9 % (11.8-14.3)
[2025-04-06 15:00] VITALS: BP 112/68; PULSE 91; RESP 18; TEMP 97.8; O2SAT 100
[2025-04-06] MEDS: IRON SUCROSE COMPLEX 110 ML IV STA (15:48)
[2025-04-06 19:00] VITALS: BP 117/73; PULSE 88; RESP 16; TEMP 97.9; O2SAT 98
[2025-04-06] MEDS ORDERED: IBUPROFEN 800 MG TAB PO ONE (20:30)
[2025-04-06 23:00] VITALS: BP 93/63; PULSE 79; RESP 16; TEMP 98.2; O2SAT 95
--- NOTE | 2025-04-07 00:05 | DVHDS2 ---
Obstetrics Discharge Summary Obstetrics Discharge Summary Date of Admission: April 05, 2025 Date of Discharge: April 07, 2025 Reason For Admission: Onset of Labor Procedures: NST Intrapartum Procedures: Spontaneous vaginal deliv Procedures: Hct/date: (04/07/25), Hgb/date: (04/07/25), Others (IV iron infusion x1) Operative Complicat: Laceration (1st degree posterior per Dr. Kowalski) Discharge Diagnosis: Term -Delivered Discharge Information: Activity (as tolerated, no heavy lifting and nothing in the vagina for 6 weeks), Diet (Routine), Medications (Rx sent), Instructions (Routine), Discharge to (Home), Accompanied by (family), Discarge date (04/07/25) Visit Coding OBGYN Date of Service: April 07, 2025 Billing Provider: BRODIE SCHNEIDER CNM [employer] Common Visit Codes: 42930-QHQ/OBS DISCH DAY <30MIN BRODIE SCHNEIDER CNM April 07, 2025 00:05
--- NOTE | 2025-04-07 00:05 | DVHPN2 ---
Progress Note Date Seen: April 07, 2025 Subjective S: Pt denies lightheaded/dizziness after IV iron infusion. bleeding is less, eating food without issues, pain well controlled with oral medications, no concerns with urinating, passing flatus, no BM yet, ambulating well, /formula vital signs Vital Sign Date Time Temp Pulse Resp B/P (MAP) Pulse Ox O2 Delivery O2 Flow Rate FiO2 04/06/25 19:00 97.9 88 16 117/73 (88) 98 97.9 04/05/25 19:00 Room Air Total Intake and Output 04/06/25 04/06/25 04/07/25 15:00 23:00 07:00 Output Total 600 ml Balance -600 ml medications Current Medications Medications Dose Ordered Sig/Joss Route Start Time Stop Time Status Last Admin Dose Admin Lactated Ringer's 1,000 ml @ 125 mls/hr Q8H IV 04/05/25 16:00 04/05/25 18:37 125 MLS/HR Mariana Jain 1 pad PRN PRN TOP 04/05/25 16:00 04/05/25 21:09 1 PAD Sodium Lauryl Sulfate 240 ml PRN PRN TOP 04/05/25 16:00 04/05/25 21:09 240 ML Benzocaine 1 applic PRN PRN TOP 04/05/25 16:00 04/05/25 21:09 1 APPLIC Lidocaine HCl 20 ml ONCE PRN IJ 04/05/25 16:00 Methylergonovine Maleate 0.2 mg Q8HP PRN IM 04/05/25 17:00 04/07/25 16:59 Misoprostol 200 mcg ONCE PRN SL 04/05/25 17:00 Misoprostol 600 mcg ONCE PRN AL 04/05/25 17:00 Ibuprofen 600 mg Q6HP PRN PO 04/06/25 02:30 Acetaminophen 650 mg Q4HP PRN PO 04/05/25 20:30 04/06/25 00:35 650 MG Ondansetron HCl 4 mg Q4HP PRN IV 04/05/25 20:30 Diphenoxylate HCl/ Atropine 5 mg Q6HP PRN PO 04/05/25 20:30 Cancel Ondansetron HCl 4 mg Q4HPRN PRN PO 04/05/25 20:30 Docusate Sodium 200 mg HS PO 04/05/25 22:00 Ibuprofen 800 mg Q6HR PRN PO 04/05/25 20:45 04/06/25 13:13 800 MG laboratory and microbiology Laboratory Tests 04/06/25 10:32 04/05/25 16:05 Test 04/05/25 16:05 Range/Units Serum Glucose 125 H 74-106 mg/dL Objective O: VSS Chest: heart sounds normal and lung sounds clear bilaterally Abd: soft, non-tender, fundus 1 below U/firm/midline, active bowel sounds, no rebound or guarding Perineum: sutures intact, edges well approximated, no erythema/edema noted Ext: Non-tender, No edema, 2+ BLE DTRs Lochia: minimal See lab results Assessment/Plan A: 34yo now PPD#2 s/p Anemia Rh+ Rubella Immune /formula P: D/C home after repeat CBC in AM Rx sent to pharmacy precautions and preeclampsia warning signs reviewed F/U with [facility] office in 2 weeks Plan discussed with: Patient Visit Coding OBGYN Date of Service: April 07, 2025 Billing Provider: BRODIE SCHNEIDER CNM [employer] Common Visit Codes: [id number] INP/OBS CARE(HIGH) BRODIE SCHNEIDER CNM April 07, 2025 00:05
[2025-04-07 03:00] VITALS: BP 106/55; PULSE 84; RESP 17; TEMP 98.4; O2SAT 96
[2025-04-07 07:00] VITALS: BP 122/75; PULSE 80; RESP 16; TEMP 98.2; O2SAT 98
[2025-04-07 09:27] LABS: Basophils # (auto) 0 10 ^3/uL (0-0.2); Basophils % (auto) 0.6 % (0.0-2.0); Eosinophils # (auto) 0.1 10 ^3/uL (0-0.8); Eosinophils % (auto) 1.3 % (0.0-7.0); Hematocrit 25.6 % (36.0-46.0); Hemoglobin 7.8 g/dL (12.2-16.2); Lymphocytes # (auto) 2.2 10 ^3/uL (0.4-5.4); Lymphocytes % (auto) 26.9 % (10.0-50.0); Mean Corpuscular Hemoglobin 22.3 pg (28.0-32.0); Mean Corpuscular Hgb Conc. 30.5 g/dL (32.0-36.0); Mean Corpuscular Volume 72.9 fL (80.0-100.0); Monocytes # (auto) 0.5 10 ^3/uL (0-1.3); Monocytes % (auto) 6.3 % (0.0-12.0); Neutrophils # (auto) 5.3 10 ^3/uL (1.6-8.6); Neutrophils % (auto) 64.9 % (37.0-80.0); Nucleated Red Blood Cells % 0.2 %; Platelet Count (auto) 319 10^3/uL (140-450); Red Blood Cells 3.51 10^6/uL (4.0-5.20); Red Cell Distribution Width 22.7 % (11.8-14.3); White Blood Cell 8.2 10^3/uL (4.4-10.8)
[2025-04-07 11:00] VITALS: BP 118/69; PULSE 70; RESP 16; TEMP 98.5; O2SAT 98
== END 2025-04-07 12:33 | disposition home or self-care (01) | DRG 560 ==
LOC: OBSVTOIN 15:43 → LDRP 15:43
PROVIDERS: ADMIT Obstetrics & Gynecology; ATTEND Obstetrics & Gynecology
PROC: 10E0XZZ Delivery of Products of Conception, External Approach (ICD-10-PCS; principal; 2025-04-05)
PROC: 0HQ9XZZ Repair Perineum Skin, External Approach (ICD-10-PCS; 2025-04-05)
PROC: 3E0R33Z Introduction of Anti-inflammatory into Spinal Canal, Percutaneous Approach (ICD-10-PCS; 2025-04-05)
PROC: 3E0R3BZ Introduction of Anesthetic Agent into Spinal Canal, Percutaneous Approach (ICD-10-PCS; 2025-04-05)
PROC: 10907ZC Drainage of Amniotic Fluid, Therapeutic from Products of Conception, Via Natural or Artificial Opening (ICD-10-PCS; 2025-04-05)
DX: O70.0 First degree perineal laceration during delivery (principal); Z37.0 Single live birth; O99.02 Anemia complicating childbirth; Z3A.37 37 weeks gestation of pregnancy; Z88.0 Allergy status to penicillin
CPT/HCPCS: 36415; 59409; 80053; 80307; 81001; 81002; 85025; 85610; 85730; 86703; 86780; 86803; 86850; 86900; 86901; 86920; 87340; 94760; 96360; 96365; 96366; G0378; J1756; J2590

== ENCOUNTER → 2025-10-13 | Outpatient (CLI) | payer MEDICAID ==
[~2025-10-13] MED LIST changes: +DOCU-265 PO; +FER325T PO; +IBUP-1455 PO
[2025-10-13 14:45] LABS: Urine Protein, UAD Negative (Negative)
== END | disposition home or self-care (01) ==
LOC: LAB 14:02
PROVIDERS: ATTEND Licensed Practical Nurse
DX: N39.0 Urinary tract infection, site not specified (principal)
CPT/HCPCS: 81001; 87086